=== PATIENT | female | born 1990 | race American Indian/Alaskan Native ===

== ENCOUNTER 2016-12-09 17:45 | Emergency (ER) | payer MEDICAID, OTHER ==
[2016-12-09 17:45] VITALS: BMI 38.9
[2016-12-09 17:51] VITALS: BP 130/72; RESP 19; TEMP 98.8; O2SAT 100
[2016-12-09 19:01] VITALS: PULSE 64
--- NOTE | 2016-12-09 19:04 | ED PDOC ---
HPI: General Adult Time Seen by Provider: 12/09/16 19:04 Chief Complaint (Nursing): Breast Problem Chief Complaint (Provider): breast exam History Per: Patient Additional Complaint(s): 26yo f in ED for eval of breast (right) tenderness-x 1 day states she has burning sensation with pain made worse with ROM without acute trauma to breast no fever no chills. Past Medical History Reviewed: Historical Data, Nursing Documentation, Vital Signs Vital Signs: Last Vital Signs Temp 98.8 F 12/09/16 17:48 Pulse 88 12/09/16 17:48 Resp 19 12/09/16 17:48 BP 130/72 12/09/16 17:48 Pulse Ox 100 12/09/16 17:48 - Medical History PMH: No Chronic Diseases Denies: Chronic Kidney Disease - Surgical History Surgical History: Appendectomy, - Family History Family History: States: Unknown Family Hx - Home Medications Home Medications: Ambulatory Orders Medication Instructions Recorded Pnv with Ca,No.72/Iron/FA 1 tab PO DAILY #90 tab 05/22/15 [ Plus Tablet] Ibuprofen [Motrin Tab] 800 mg PO Q8 #0 tab 01/05/16 - Allergies Allergies/Adverse Reactions: Allergies Allergy/AdvReac Type Severity Reaction Status Date / Time No Known Allergies Allergy Verified 05/17/15 11:13 Review of Systems ROS Statement: Except As Marked, All Systems Reviewed And Found Negative Constitutional: Negative for: Fever, Chills Physical Exam - Reviewed Nursing Documentation Reviewed: Yes Vital Signs Reviewed: Yes - Physical Exam Appears: Positive for: Well, Non-toxic, No Acute Distress Head Exam: Positive for: ATRAUMATIC, NORMAL INSPECTION, NORMOCEPHALIC Skin: Positive for: Normal Color, Warm, DRY ENT: Positive for: Normal ENT Inspection Cardiovascular/Chest: Positive for: Regular Rate, Rhythm, Chest Non Tender ( breast exam: normal exam) Respiratory: Positive for: CNT, Normal Breath Sounds Neurologic/Psych: Positive for: Alert, Oriented - ECG O2 Sat by Pulse Oximetry: 100 Medical Decision Making Medical Decision Making: pt advised to have obgyn f.u for further US of breast at thist time no evidence of abscess Disposition - Clinical Impression Clinical Impression: Pain of breast - Patient ED Disposition Is Patient to be Admitted: No Counseled Patient/Family Regarding: Need For Followup - Disposition Disposition: Routine/Home Disposition Time: 18:55 Condition: STABLE Instructions: Breast Self Exam for Women (ED), Premenstrual Syndrome (ED)
== END 2016-12-09 19:22 | disposition home or self-care (01) ==
LOC: H.ER 17:45
DX: N64.4 Mastodynia (principal)

== ENCOUNTER 2017-10-28 21:31 | Emergency (ER) | payer MEDICAID ==
[2017-10-28 21:39] VITALS: BMI 33.6
[2017-10-28 21:41] VITALS: BP 129/73; PULSE 80; RESP 16; TEMP 98.2; O2SAT 100
[2017-10-28] MEDS ORDERED: Naproxen 500 MG TAB PO STA (21:54)
--- NOTE | 2017-10-28 22:04 | ED PDOC ---
Lower Extremity Pain/Injury Time Seen by Provider: 10/28/17 21:41 Chief Complaint (Nursing): Lower Extremity Problem/Injury Chief Complaint (Provider): Right Knee Pain History Per: Patient History/Exam Limitations: no limitations Onset/Duration Of Symptoms: Days (x1) Current Symptoms Are (Timing): Still Present Pain Scale Rating Of: 7 Additional Complaint(s): 27 y/o female presents to the ED for evaluation of atraumatic right knee pain since this morning that worsened throughout the day today. 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 She denies taking anything for pain prior to arrival. Patient also denies any history of knee injury. She states persistence of symptoms is what prompted ED visit. Denies fever, falls, other joint pain, or rash. LMP: current PMD: [facility] Past Medical History Reviewed: Historical Data, Nursing Documentation, Vital Signs Vital Signs: Last Vital Signs Temp 98.2 F 10/28/17 21:39 Pulse 80 10/28/17 21:39 Resp 16 10/28/17 21:39 BP 129/73 10/28/17 21:39 Pulse Ox 100 10/28/17 21:39 - Medical History PMH: No Chronic Diseases Denies: Chronic Kidney Disease - Surgical History Surgical History: Appendectomy, (x2) - Family History Family History: States: Unknown Family Hx - Social History Current smoker - smoking cessation education provided: No Alcohol: None Drugs: Denies - Home Medications Home Medications: Ambulatory Orders Medication Instructions Recorded Pnv with Ca,No.72/Iron/FA 1 tab PO DAILY #90 tab 05/22/15 [ Plus Tablet] Ibuprofen [Motrin Tab] 800 mg PO Q8 #0 tab 01/05/16 Naproxen 500 mg PO BID #20 tab 10/28/17 - Allergies Allergies/Adverse Reactions: Allergies Allergy/AdvReac Type Severity Reaction Status Date / Time No Known Allergies Allergy Verified 10/28/17 21:39 Review of Systems ROS Statement: Except As Marked, All Systems Reviewed And Found Negative Constitutional: Negative for: Fever Musculoskeletal: Positive for: Leg Pain (right knee) Skin: Negative for: Rash Physical Exam - Reviewed Nursing Documentation Reviewed: Yes Vital Signs Reviewed: Yes - Physical Exam Comments: GENERAL APPEARANCE: Patient is awake, alert, oriented x 3, in no acute distress. SKIN: Warm, dry; (-) cyanosis. ENMT: Mucous membranes moist. Airway patent: (-) stridor. NECK: Supple, FROM CHEST AND RESPIRATORY: (-) rales, (-) rhonchi, (-) wheezes; breath sounds equal bilaterally. Speaking in full sentences, respirations even and nonlabored. HEART AND CARDIOVASCULAR: (-) irregularity; (-) murmur, (-) gallop. EXTREMITIES: Right knee: (+) small effusion, (+) decreased ROM on flexion secondary to pain, (-) ecchymosis, (-) skin break, (-) instability on varus and valgus stress test, (-) posterior and anterior drawer sign. Neurovascular intact. 5/5 strength. NEURO AND PSYCH: Mental status as above. Ambulatory with a limp in ED. - ECG O2 Sat by Pulse Oximetry: 100 (RA) Pulse Ox Interpretation: Normal Medical Decision Making Medical Decision Makin:54 Initial Impression: Acute knee pain/sprain Plan: --X-Ray right knee --Naproxen 500mg PO --Reevaluation 2309 XR reviewed (-) fracture (-) dislocation as read by Arvind GREEN Patient advised that official radiology read of XR is still pending and will call the patient if there is any discrepancy within 24 hours. Chirag wrap applied to right knee. Patient provided with crutches and instructed on crutch walking. 2330 On re-evaluation, patient reports improvement of symptoms. On exam, patient remains AAOx3, in no acute distress. On exam, neck is supple, lungs CTA, cardiac RRR, neuro exam shows no focal findings. VSS, stable for discharge. RICE encouraged. Diagnostic results d/w the patient in great detail. Dx of acute knee pain/ sprain d/w the patient. Based on history, exam and diagnostic results plan will be for discharge and outpatient follow up. Advised to follow up with primary care physician in 1-2 days without fail. Advised to take medication as prescribed. Return to the emergency room at any time for any new or worsening symptoms. Patient states she fully agrees with and understands discharge instructions. States that she agrees with the plan and disposition. Verbalized and repeated discharge instructions and plan. I have given the patient opportunity to ask any additional questions. Scribe Attestation: Documented by Luis M Gabriel, acting as a scribe for KELLI Li. Provider Scribe Attestation: All medical record entries made by the Scribe were at my direction and personally dictated by me. I have reviewed the chart and agree that the record accurately reflects my personal performance of the history, physical exam, medical decision making, and the department course for this patient. I have also personally directed, reviewed, and agree with the discharge instructions and disposition. Disposition - Clinical Impression Clinical Impression: Knee pain, right, Right knee sprain - Patient ED Disposition Is Patient to be Admitted: No Counseled Patient/Family Regarding: Studies Performed, Diagnosis, Need For Followup, Rx Given - Disposition Referrals: Pieter Menezes III, MD [Staff Provider] - Disposition: Routine/Home Disposition Time: 23:18 Condition: STABLE Additional Instructions: REST ICE COMPRESS (BANDAGE) ELEVATE Prescriptions: Naproxen 500 mg PO BID #20 tab Instructions: Knee Sprain (DC), Knee Pain (DC) Forms: [employer] (German), [facility] ED School/Work Excuse Print Language: TAMAZIGHT - POA Present On Arrival: None
[2017-10-28] MEDS ORDERED: Naproxen 500 MG TAB PO ONE (22:20)
--- NOTE | 2017-10-29 08:54 | RAD ---
PROCEDURE: Right Knee Radiographs. HISTORY: pain and swelling COMPARISON: None. FINDINGS: BONES: No acute cardiopulmonary disease appreciated. JOINTS: Normal. No osteoarthritis. JOINT EFFUSION: None. OTHER FINDINGS: None. IMPRESSION: Unremarkable radiographs of the right knee.
== END 2017-10-28 23:55 | disposition home or self-care (01) ==
LOC: H.ER 21:31
DX: S83.91XA Sprain of unspecified site of right knee, initial encounter (principal); Y92.89 Other specified places as the place of occurrence of the external cause

== ENCOUNTER 2017-11-29 15:54 | Emergency (ER) | payer MEDICAID ==
[2017-11-29 15:55] VITALS: BMI 33.6
[2017-11-29 16:00] VITALS: BP 105/72; PULSE 70; RESP 18; TEMP 98; O2SAT 100
--- NOTE | 2017-11-29 16:12 | ED PDOC ---
Lower Extremity Pain/Injury Time Seen by Provider: 11/29/17 16:02 Chief Complaint (Nursing): Lower Extremity Problem/Injury Chief Complaint (Provider): Left Foot Injury History Per: Patient History/Exam Limitations: no limitations Onset/Duration Of Symptoms: Days (x 1) Current Symptoms Are (Timing): Still Present Additional Complaint(s): 27 year old female with no significant past medical history presents to the emergency department with pain to left 5th toe s/p tripping over her sneaker last night. Patient work up today with throbbing pain and ecchymosis to affected area. No meds taken for pain relief. Patient denies any numbness or tingling to affected area. PMD: [facility] Past Medical History Reviewed: Historical Data, Nursing Documentation, Vital Signs Vital Signs: Last Vital Signs Temp 98.0 F 11/29/17 15:58 Pulse 70 11/29/17 15:58 Resp 18 11/29/17 15:58 BP 105/72 11/29/17 15:58 Pulse Ox 100 11/29/17 15:58 - Medical History PMH: No Chronic Diseases - Surgical History Surgical History: Appendectomy, (x2) - Family History Family History: States: No Known Family Hx - Living Arrangements Living Arrangements: With Family - Social History Current smoker - smoking cessation education provided: No Alcohol: Social Drugs: Denies - Home Medications Home Medications: Ambulatory Orders Medication Instructions Recorded Pnv with Ca,No.72/Iron/FA 1 tab PO DAILY #90 tab 05/22/15 [ Plus Tablet] Ibuprofen [Motrin Tab] 800 mg PO Q8 #0 tab 01/05/16 Naproxen 500 mg PO BID #20 tab 10/28/17 - Allergies Allergies/Adverse Reactions: Allergies Allergy/AdvReac Type Severity Reaction Status Date / Time No Known Allergies Allergy Verified 11/29/17 15:58 Review of Systems ROS Statement: Except As Marked, All Systems Reviewed And Found Negative Musculoskeletal: Positive for: Foot Pain (left 5th toe injury) Physical Exam - Reviewed Nursing Documentation Reviewed: Yes Vital Signs Reviewed: Yes - Physical Exam Appears: Positive for: Well, Non-toxic, No Acute Distress Skin: Positive for: Normal Color. Negative for: Rash Eye Exam: Positive for: Normal appearance Extremity: Positive for: Other (ecchymosis and tenderness to the left fifth toe with decreased rom, remaining toes of left foot wnl) Neurologic/Psych: Positive for: Alert, Oriented - Laboratory Results Urine POC: Negative (patient declined test, states she is certain she is not ) - ECG O2 Sat by Pulse Oximetry: 100 (RA) Pulse Ox Interpretation: Normal - Other Rad Left foot injury X-Ray: Interpreted by Me, Viewed By Me X-Ray Interpretation: oblique fracture left 5th toe Medical Decision Making Medical Decision Making: Time: 1601 Initial Impression: 27 y/o female with left foot injury Initial Plan: -- Left Foot XRay -- Pain meds declined Procedure Note: Left 4th and 5th toes susannah taped, ortho shoe applied to left foot, N/V intact s/p placement. Patient was advised to take ibuprofen for pain relief and follow-up with podiatry clinic in 2-3 days. Scribe Attestation: Documented by Kiersten Shetty, acting as a scribe for Jeny Hernández PA-C Provider Scribe Attestation: All medical record entries made by the Scribe were at my direction and personally dictated by me. I have reviewed the chart and agree that the record accurately reflects my personal performance of the history, physical exam, medical decision making, and the department course for this patient. I have also personally directed, reviewed, and agree with the discharge instructions and disposition. Disposition - Clinical Impression Clinical Impression: Toe fracture, left - Patient ED Disposition Is Patient to be Admitted: No Counseled Patient/Family Regarding: Studies Performed, Diagnosis, Need For Followup - Disposition Referrals: Podiatry Clinic [Outside] Disposition: Routine/Home Disposition Time: 16:38 Condition: STABLE Additional Instructions: Ice, rest and elevate affected area. Take 3 ibuprofen tablets every 6 hours for pain relief. Follow-up in 2-3 days with podiatry clinic. Instructions: Toe Fracture (DC) Forms: [facility] (Uruguayan), [facility] ED School/Work Excuse
--- NOTE | 2017-11-29 16:51 | RAD ---
PROCEDURE: Left Foot Radiographs. HISTORY: trauma, attn 5th toe COMPARISON: None. FINDINGS: BONES: There is an acute oblique nondisplaced fracture in the proximal phalanx of the 5th toe. Bone alignment and mineralization are normal. JOINTS: Normal. SOFT TISSUES: There is soft tissue swelling in the 5th toe. OTHER FINDINGS: None. IMPRESSION: Acute oblique nondisplaced fracture in the proximal phalanx of the 5th toe with surrounding soft tissue swelling.
== END 2017-11-29 17:01 | disposition home or self-care (01) ==
LOC: H.ER 15:54
DX: S92.502A Displaced unspecified fracture of left lesser toe(s), initial encounter for closed fracture (principal); W22.8XXA Striking against or struck by other objects, initial encounter

== ENCOUNTER 2018-05-01 10:21 | Emergency (ER) | payer MEDICAID ==
[2018-05-01 10:27] VITALS: BMI 40.0
[2018-05-01 10:29] VITALS: BP 103/73; PULSE 73; RESP 20; TEMP 97.7; O2SAT 98
--- NOTE | 2018-05-01 11:41 | ED PDOC ---
HPI: General Adult Time Seen by Provider: 05/01/18 11:14 Chief Complaint (Nursing): Abnormal Skin Integrity Chief Complaint (Provider): intra oral lesions History Per: Patient Additional Complaint(s): 27-year-old female presents with painful intra-oral lesions. Patient states that she tripped and fell last week sustaining abrasions to mucosal surface of lower lip. Since yesterday she has noticed blister formation and is having severe pain to affected area. She is tolerating liquids but has too much pain to chew solid food. No fever or chills, no active drainage. PMD: [facility] Past Medical History Reviewed: Historical Data, Nursing Documentation, Vital Signs Vital Signs: Last Vital Signs Temp 97.7 F 05/01/18 10: Pulse 73 05/01/18 10:27 Resp 20 05/01/18 10:27 BP 103/73 05/01/18 10:27 Pulse Ox 98 05/01/18 10:27 - Medical History PMH: No Chronic Diseases - Surgical History Surgical History: Appendectomy, (x2) - Family History Family History: States: No Known Family Hx - Living Arrangements Living Arrangements: With Family - Social History Current smoker - smoking cessation education provided: No Alcohol: None Drugs: Denies - Home Medications Home Medications: Ambulatory Orders Medication Instructions Recorded Pnv with Ca,No.72/Iron/FA 1 tab PO DAILY #90 tab 05/22/15 [ Plus Tablet] Ibuprofen [Motrin Tab] 800 mg PO Q8 #0 tab 01/05/16 Naproxen 500 mg PO BID #20 tab 10/28/17 Amoxicillin 875 mg PO BID #14 tab 05/01/18 Ibuprofen [Motrin Tab] 800 mg PO Q8 PRN #20 tab 05/01/18 - Allergies Allergies/Adverse Reactions: Allergies Allergy/AdvReac Type Severity Reaction Status Date / Time No Known Allergies Allergy Verified 11/29/17 15:58 Review of Systems ROS Statement: Except As Marked, All Systems Reviewed And Found Negative Constitutional: Negative for: Fever ENT: Positive for: Other (intr-oral lesions) Physical Exam - Reviewed Nursing Documentation Reviewed: Yes Vital Signs Reviewed: Yes - Physical Exam Appears: Positive for: Well, Non-toxic, No Acute Distress Skin: Positive for: Normal Color. Negative for: Rash Eye Exam: Positive for: Normal appearance ENT: Positive for: Other (Superficial blisters noted to mucosal surface of lower lip) Extremity: Positive for: Normal ROM Neurologic/Psych: Positive for: Alert, Oriented - Laboratory Results Urine POC: Negative (patient declined test, states she is certain she is not ) - ECG O2 Sat by Pulse Oximetry: 98 Pulse Ox Interpretation: Normal Medical Decision Making Medical Decision Makin27 y/o female with intra-oral lesions Plan: PO motrin Patient given prescriptions for Motrin, amoxicillin and viscous lidocaine PO. Advise PMD follow-up or follow-up with dentist. Disposition - Clinical Impression Clinical Impression: Traumatic blister of mouth - Patient ED Disposition Is Patient to be Admitted: No Counseled Patient/Family Regarding: Diagnosis, Need For Followup, Rx Given - Disposition Referrals: [facility] [Outside] Disposition: Routine/Home Disposition Time: 11:45 Condition: STABLE Additional Instructions: Take prescription meds as directed. Follow-up with primary doctor or dentist in 2-3 days. Prescriptions: Amoxicillin 875 mg PO BID #14 tab Ibuprofen [Motrin Tab] 800 mg PO Q8 PRN #20 tab PRN Reason: Pain, Moderate (4-7) Instructions: Blisters
== END 2018-05-01 12:12 | disposition home or self-care (01) ==
LOC: H.ER 10:21
DX: K13.70 Unspecified lesions of oral mucosa (principal)

== ENCOUNTER 2018-06-21 10:51 | Emergency (ER) | payer MEDICAID ==
[2018-06-21 11:10] VITALS: BP 122/77; RESP 18; TEMP 98.2; O2SAT 100
[2018-06-21 11:11] VITALS: BMI 35.4
[2018-06-21] MEDS ORDERED: PROPARACAINE/FLUORESCEIN SOD 100 DROP/5 ML BOTTLE OU STA (11:49)
[2018-06-21] MEDS ORDERED: Fluorescein 1 mg Ophthalmic Strip ONE (11:52)
--- NOTE | 2018-06-21 12:02 | ED PDOC ---
HPI: Eye Injury/Pain Time Seen by Provider: 06/21/18 11:29 Chief Complaint (Nursing): Eye Problem Chief Complaint (Provider): L eye redness History Per: Patient History/Exam Limitations: no limitations Additional Complaint(s): Pt reports redness and itchiness of L eye since yesterday, wears contacts. Eye was crusted shut this morning. Denies visual changes, trauma. Used OTC medication without relief. Past Medical History Reviewed: Nursing Documentation, Vital Signs Vital Signs: Last Vital Signs Temp 98.2 F 06/21/18 11:09 Pulse 98 H 06/21/18 11:09 Resp 18 06/21/18 11:09 BP 122/77 06/21/18 11:09 Pulse Ox 100 06/21/18 11:09 - Medical History PMH: No Chronic Diseases Denies: Chronic Kidney Disease - Surgical History Surgical History: Appendectomy, (x2) - Family History Family History: States: Unknown Family Hx - Social History Current smoker - smoking cessation education provided: No - Home Medications Home Medications: Ambulatory Orders Medication Instructions Recorded Pnv with Ca,No.72/Iron/FA 1 tab PO DAILY #90 tab 05/22/15 [ Plus Tablet] Ibuprofen [Motrin Tab] 800 mg PO Q8 #0 tab 01/05/16 Naproxen 500 mg PO BID #20 tab 10/28/17 Amoxicillin 875 mg PO BID #14 tab 05/01/18 Ibuprofen [Motrin Tab] 800 mg PO Q8 PRN #20 tab 05/01/18 Lidocaine 2% Viscous 10 ml PO QID #300 ml 05/01/18 Moxifloxacin HCl [Moxifloxacin] 2 ml OP DAILY #1 drops 06/21/18 - Allergies Allergies/Adverse Reactions: Allergies Allergy/AdvReac Type Severity Reaction Status Date / Time No Known Allergies Allergy Verified 06/21/18 11:26 Review of Systems Constitutional: Negative for: Fever Eyes: Positive for: Conjunctivae Inflammation, Redness. Negative for: Pain, Vision Change, Eyelid Inflammation Physical Exam - Reviewed Nursing Documentation Reviewed: Yes Vital Signs Reviewed: Yes - Physical Exam Appears: Positive for: Well, No Acute Distress Head Exam: Positive for: ATRAUMATIC, NORMAL INSPECTION Skin: Positive for: Normal Color, Warm, Dry Eye Exam: Positive for: EOMI, PERRL, Conjunctival injection, Other (No abnormal fluoroscein uptake). Negative for: Nystagmus, Periorbital swelling, Periorbital tenderness, Scleral icterus - ECG O2 Sat by Pulse Oximetry: 100 Medical Decision Making Medical Decision Makin yo female with OS conjuncivitis. - Rx Moxifloxacin Disposition - Clinical Impression Clinical Impression: Conjunctivitis - Disposition Referrals: Edilberto Olvera MD [Staff Provider] - Disposition: Routine/Home Disposition Time: 12:04 Condition: GOOD Prescriptions: Moxifloxacin HCl [Moxifloxacin] 2 ml OP DAILY #1 drops Instructions: Conjunctivitis ([place]) Forms: [facility] (Russian)
[2018-06-21 12:33] VITALS: PULSE 85
== END 2018-06-21 12:45 | disposition home or self-care (01) ==
LOC: H.ER 10:51
DX: H10.9 Unspecified conjunctivitis (principal)